=== PATIENT | male | born 1980 | race Caucasian/White ===

== ENCOUNTER 2021-09-21 12:30 | Emergency (ER) | payer OTHER, SELFPAY ==
[2021-09-21 13:30] VITALS: BP 137/84; PULSE 69; RESP 18; TEMP 37.4; O2SAT 99
--- NOTE | 2021-09-21 14:17 | ED.URI ---
HPI - URI/Sore Throat General Chief Complaint: Upper Respiratory Infection Stated Complaint: Fever/Chills/Sore Throat Time Seen by Provider: 09/21/21 14:18 Source: patient, family, RN notes reviewed and old records reviewed Mode of arrival: ambulatory Limitations: no limitations History of Present Illness HPI Narrative: 41-year-old male presents to the [facility] with complaints of fever, chills, sore throat since yesterday. Has been doing [id number] NyQuil and ibuprofen with no relief. MD elicited complaint: fever and sore throat Related Data Allergies Allergy/AdvReac Type Severity Reaction Status Date / Time No Known Allergies Allergy Verified 09/21/21 13:56 Review of Systems Review of Systems: All systems reviewed & are unremarkable except as noted in HPI and below Constitutional: Constitutional: Denies chills and Reports fever(s) Eyes: Eyes: Reports no additional eye complaints, Denies change in vision and Denies photophobia ENT: Reports as per HPI and Reports sore throat Cardiovascular: Cardiovascular: Reports no additional cardiovascular complaints, Denies chest pain and Denies radiating jaw, neck or arm pain Respiratory: Respiratory: Reports no additional respiratory complaints, Denies cough and Denies dyspnea Gastrointestinal: Gastrointestinal: Reports no additional gastrointestinal complaints, Denies abdominal pain, Denies nausea and Denies vomiting Genitourinary: Genitourinary: Reports no additional male genitourinary complaints Musculoskeletal: Musculoskeletal: Reports no additional musculoskeletal complaints, Denies back pain, Denies joint swelling and Denies muscle cramps Integumentary/Breasts: Skin/Breast: Reports system reviewed and no additional complaints, except as docu Neurologic: Reports system reviewed and no additional complaints, except as documented Psychiatric: Psychiatric: Reports no additional psychiatric complaints Allergic/Immunologic: Allergic/Immunologic: Reports no additional allergic/immunologic complaints PMFSH Past Medical History Medical History (Updated 09/22/21 @ 00:00 by Thi Dajohanna) No significant medical problems Surgical History Surgical History (Updated 09/21/21 @ 14:28 by Leyla Armendariz) No significant past surgical history Social History Social History (Updated 09/21/21 @ 14:28 by Leyla Armendariz) Gender identity (if verbalized by the patient): Male Exam Const: General: healthy appearing, no acute distress and alert Nutritional Appearance: well nourished Orientation/consciousness: patient oriented x3 Limitations: no limitations HENMT: Head: normal to inspection Mouth: Yes Normal oral and palatal mucosa present Throat: uvula midline, abnormal tonsil bilateral erythema; no exudates and no hypertrophy and posterior oropharynx abnormal erythema Eyes: Conjunctivae: conjunctivae normal Pupils: Equal, round and reactive pupils present Neck: Neck: normal visual inspection, no lymphadenopathy and no meningeal signs Chest: Chest palpation & inspection: normal inspection of the chest Resp: Effort & Inspection: normal respiratory effort and no use of accessory muscles Auscultation: clear to auscultation bilaterally, no crackles, no rales, no rhonchi and no wheezes Cardio: Rate: regular rate Rhythm: regular rhythm Back/Spine/Pelvis: Back: no CVA tenderness Skin: General skin exam: normal color Rashes: no rashes Wounds: no wounds Neuro: General: patient oriented x3, moves all extremities and no meningeal signs Speech: normal speech Gait exam (Neuro): Normal gait present Extrem: General: normal to inspection Psych: Appearance: grossly normal and well kempt Mental Status: mental status grossly normal Affect: normal affect Attitude: cooperative Thought content: Yes Normal thought content present Course Course Emergency Course: Discharge instructions reviewed with patient, as well as provided in writing per nursing staff. The instru
[2021-09-22 14:36] LABS: SARS-CoV-2 RNA PCR Positive
== END 2021-09-21 14:43 | disposition home or self-care (01) ==
PROVIDERS: Emergency Provider Nurse Practitioner
DX: U07.1 COVID-19 (principal)
CPT/HCPCS: 87804; 87880; 99213; C9803; G0463; U0003; U0005

== ENCOUNTER → 2021-11-14 15:57 | Outpatient (REF) | payer OTHER, SELFPAY | LOC: ANHLAB 15:57 | PROVIDERS: Visit Provider Nurse Practitioner | DX: D49.2 Neoplasm of unspecified behavior of bone, soft tissue, and skin (principal) | CPT/HCPCS: 88305 ==

== ENCOUNTER → 2021-12-19 13:29 | Outpatient (REF) | payer OTHER, SELFPAY | LOC: ANHLAB 13:29 | PROVIDERS: Visit Provider Nurse Practitioner | DX: L72.11 Pilar cyst (principal); D22.5 Melanocytic nevi of trunk | CPT/HCPCS: 88304; 88305 ==

== ENCOUNTER 2022-11-21 09:00 | Outpatient (NON) | payer OTHER, SELFPAY | END 2022-11-21 09:01 | disposition home or self-care (01) | LOC: ANHLAB 11-22 09:37 | PROVIDERS: Visit Provider Nurse Practitioner | DX: D22.5 Melanocytic nevi of trunk (principal) | CPT/HCPCS: 88305 ==